=== PATIENT | female | born 2000 | race Caucasian/White ===

== ENCOUNTER 2021-06-04 01:10 | Emergency (ER) | payer MEDICAID, OTHER ==
[2021-06-04] MEDS ORDERED: Alum Hydrox/Mag Hydrox/Simeth 15 ML, Lidocaine 2% 15 ML PO ONE ×2 (01:52)
--- NOTE | 2021-06-04 01:53 | EDM.PDOC ---
ED HPI GENERAL MEDICAL PROBLEM - General Chief Complaint: Chest Pain Stated Complaint: CHEST PAIN Time Seen by Provider: 06/04/21 01:47 Source of Information: Reports: Patient, Family, RN Notes Reviewed History Limitations: Reports: No Limitations - History of Present Illness INITIAL COMMENTS - FREE TEXT/NARRATIVE: 20-year-old female presents emergency department day complaint of chest pain, states chest pain start about 3 hours prior it is constant in nature rated 7 out of 10 she never had any heart troubles had [place] meatballs for dinner tonight pain is predominantly in the center of her chest epigastric region there is some diaphoresis there is some nausea no vomiting there is some shortness of breath. Family history Father myocardial infarction in his 60s - Related Data Allergies Allergy/AdvReac Type Severity Reaction Status Date / Time penicillin G procaine Allergy Rash Verified 06/04/21 01:25 red dye Allergy Hives Verified 06/04/21 01:25 Home Meds: Home Meds Cholecalciferol (Vitamin D3) [Vitamin D] 5,000 unit PO DAILY 06/04/21 [History] Methylphenidate HCl [Ritalin LA] 1 tab PO DAILY 06/04/21 [History] Propranolol [Inderal] 10 mg PO DAILY 06/04/21 [History] Sertraline HCl 100 mg PO BEDTIME 06/04/21 [History] Zolpidem [Ambien] 5 mg PO BEDTIME 06/04/21 [History] hydrOXYzine pamoate [Hydroxyzine Pamoate] 1 tab PO QID PRN 06/04/21 [History] lamoTRIgine [Lamotrigine] 75 mg PO DAILY 06/04/21 [History] Past Medical History HEENT History: Reports: Allergic Rhinitis, Impaired Vision Respiratory History: Reports: Asthma Gastrointestinal History: Reports: Chronic Constipation, Chronic Diarrhea Genitourinary History: Reports: UTI, Recurrent Musculoskeletal History: Reports: Fracture, Fibromyalgia Psychiatric History: Reports: ADHD, Anxiety, Depression, Panic Attack, Suicide Attempt, Suicidal Ideation, Other (See Below) Other Psychiatric History: asperger's - Past Surgical History Musculoskeletal Surgical History: Reports: Other (See Below) Other Musculoskeletal Surgeries/Procedures:: left thumb surgery 10/04/15 - History Comment History Comment: 15-year-old female had a pin placed in the left thumb 2 weeks ago, was on Bactrim but stopped taking it after 2 doses. She now has developed cellulitis and swelling of the surgical area. Social & Family History - Tobacco Use Tobacco Use Status *Q: Never Tobacco User - Caffeine Use Caffeine Use: Reports: Coffee - Recreational Drug Use Recreational Drug Use: No - Living Situation & Occupation Living situation: Reports: with Family Occupation: Student ED ROS GENERAL - Review of Systems Review Of Systems: See Below Constitutional: Reports: Diaphoresis HEENT: Reports: No Symptoms Respiratory: Reports: Shortness of Breath Cardiovascular: Reports: Chest Pain GI/Abdominal: Reports: Nausea. Denies: Vomiting ED EXAM, GENERAL - Physical Exam Exam: See Below Exam Limited By: No Limitations General Appearance: Alert, WD/WN, No Apparent Distress Respiratory/Chest: No Respiratory Distress, Lungs Clear, Normal Breath Sounds, No Accessory Muscle Use, Chest Non-Tender Cardiovascular: Regular Rate, Rhythm, No Murmur #1 Interpretation EKG Date: 06/04/21 Time: 01:58 Rhythm: NSR [place]: Normal P-Wave: Present QRS: Normal ST-T: Normal QT: Normal Comparison: NA - No Prior EKG Course - Vital Signs Last Recorded V/S: Last Vital Signs Temp 97.6 F 06/04/21 01:33 Pulse 75 06/04/21 02:45 Resp 11 L 06/04/21 02:45 BP 119/56 L 06/04/21 02:45 Pulse Ox 98 06/04/21 02:45 - Orders/Labs/Meds Orders: Active Orders 24 hr Category Date Time Status Cardiac Monitoring [RC] .As Directed Care 06/04/21 02:46 Active EKG Documentation Completion [RC] ASDIRECTED Care 06/04/21 02:47 Active EKG 12 Lead [EK] Stat Ther 06/04/21 02:47 Ordered Labs: Laboratory Tests 06/04/21 06/04/21 Range/Units 02:59 02:59 WBC 8.9 (4.5-11.0) K/uL RBC 4.25 (3.30-5.50) M/uL Hgb 12.2 (12.0-15.0) g/dL Hct 35.0 L (36.0-48.0) % MCV 82 (80-98) fL MCH 29 (27-31) pg MCHC 35 (32-36) % Plt Count 301 (150-400) K/uL Neut % (Auto) 73.3 H (36-66) % Lymph % (Auto) 17.9 L (24-44) % [place] % (Auto) 7.8 H (2-6) % Eos % (Auto) 0.8 L (2-4) % Baso % (Auto) 0.2 (0-1) % Sodium 141 (140-148) mmol/L Potassium 3.5 L (3.6-5.2) mmol/L Chloride 106 (100-108) mmol/L Carbon Dioxide 25 (21-32) mmol/L Anion Gap 13.5 (5.0-14.0) mmol/L BUN 13 (7-18) mg/dL Creatinine 0.8 (0.6-1.0) mg/dL Est Cr Clr Drug Dosing 95.25 mL/min Estimated GFR (MDRD) > 60 (>60) Glucose 109 H (74-106) mg/dL Calcium 8.2 L (8.5-10.1) mg/dL Troponin I < 0.017 (0.000-0.056) ng/mL Meds: Medications Discontinued Medications Generic Name Dose Route Start Last Admin Trade Name Freq PRN Reason Stop Dose Admin Al Hydroxide/Mg Hydroxide 15 0 ml 06/04/21 01:52 06/04/21 02:03 ml/ Lidocaine HCl 15 ml PO 06/04/21 01:53 15 ml ONETIME ONE Administration Departure - Departure Time of Disposition: 03:37 Disposition: Home, Self-Care 01 Condition: Fair Clinical Impression: Epigastric abdominal pain Instructions: Abdominal Pain, Adult Referrals: PCP,None [Primary Care Provider] - Forms: ED Department Discharge Additional Instructions: Try [id number] medications such as Tums, Zantac, Protonix see if this provides any relief, please followup with your primary care provider in 3-5 days if not better, please call return to the emergency department with worsening of symptoms. Sepsis Event Note (ED) - Evaluation Sepsis Screening Result: No Definite Risk - Focused Exam Vital Signs: Vital Signs Temp Pulse Resp BP Pulse Ox 06/04/21 02:45 75 11 L 119/56 L 98 06/04/21 01:33 97.6 F 71 10 L 114/71 99 06/04/21 01:32 97.6 F 71 10 L 114/71 99 - My Orders Last 24 Hours: My Active Orders 06/04/21 02:46 Cardiac Monitoring [RC] .As Directed 06/04/21 02:47 EKG Documentation Completion [RC] ASDIRECTED EKG 12 Lead [EK] Stat - Assessment/Plan Last 24 Hours: My Active Orders 06/04/21 02:46 Cardiac Monitoring [RC] .As Directed 06/04/21 02:47 EKG Documentation Completion [RC] ASDIRECTED EKG 12 Lead [EK] Stat Plan: Assessment Acuity = acute Site and laterality = epigastric pain Etiology = suspicious for gastroesophageal reflux disease Manifestations = none Location of injury = Home Lab values = CBC BMP within normal limits EKG demonstrates sinus rhythm, troponins negative Plan She had good relief with the GI cocktail she is can try some reflux medication at home follow-up with her primary 3 to 5 days for reevaluation This note was dictated using Numerate voice recognition software please call with any questions on syntax or grammar.
[2021-06-04 03:02] VITALS: BP 119/56; PULSE 75
== END 2021-06-04 03:45 | disposition home or self-care (01) ==
LOC: JP.ED 01:10
DX: R10.13 Epigastric pain (principal); J45.909 Unspecified asthma, uncomplicated; Z88.0 Allergy status to penicillin; Z91.041 Radiographic dye allergy status; Z79.899 Other long term (current) drug therapy
CPT/HCPCS: 36415; 80048; 84484; 85025; 93005; 99285; A9270